=== PATIENT | female | born 2000 | race Caucasian/White ===

== ENCOUNTER 2023-01-04 12:07 | Emergency (ER) | payer BC, OTHER ==
[2023-01-04] MEDS ORDERED: BENADRYL 50 MG/ML IV ONE (12:27)
[2023-01-04] MEDS ORDERED: Sodium Chloride 0.9% 1000 ML 1,000 ML IV STA (12:27)
[2023-01-04] MEDS ORDERED: Zofran 4 MG/2 ML VIAL IV ONE (12:28)
[2023-01-04] MEDS ORDERED: BENADRYL 50 MG/ML ONE (12:34)
[2023-01-04] MEDS ORDERED: Sodium Chloride 0.9% 1000 ML 1,000 ML ONE (12:34)
[2023-01-04] MEDS ORDERED: Zofran 4 MG/2 ML VIAL ONE (12:34)
[2023-01-04 13:06] VITALS: PULSE 50
[2023-01-04 13:21] LABS: Absolute Neutrophil Ct (ANC) 5.12 x10^3/uL (1.4-6.9); BASOPHIL % 0.4 % (0.0-0.4); Basophil (Absolute #) 0.03 x10^3/uL (0-0.4); Eosinophil % 0.4 % (0.00-5.0); Eosinophil (Absolute #) 0.03 x10^3/uL (0-0.5); Hematocrit 40.5 % (35-47); Hemoglobin 13.3 g/dL (12.0-16.0); IMMATURE GRAN # 0.02 x10^3u/L (0.00-0.03); IMMATURE GRAN % 0.3 % (0.00-0.4); Lymphocyte (Absolute #) 1.32 x10^3/uL (1.0-4.6); Lymphocytes % 19.6 % (24.0-44.0); Mean Cell Volume 82.2 fL (78-100); Mean Corpuscular Hgb Concent. 32.8 g/dL (32-36); Mean Platelet Volume 10.6 fL (7.5-11.0); Monocyte (Absolute #) 0.21 x10^3/uL (0.0-1.3); Monocytes % 3.1 % (0.0-12.0); Neutrophil % 76.2 % (36.0-66.0); Platelet Count 302 x10^3/uL (150-450); Red Blood Count 4.93 x10^6/uL (4.1-5.4); Red Cell Distribution Width 13.7 % (11.5-14.0); White Blood Count 6.7 x10^3/uL (4.0-10.5)
[2023-01-04 13:34] LABS: HCG SERUM TEST NEGATIVE (NEGATIVE)
[2023-01-04 13:38] LABS: ALKALINE PHOSPHATASE 117 U/L (38-126); ANION GAP 17.9 MEQ/L (5-15); BLOOD UREA NITROGEN 12 mg/dL (7-17); CHLORIDE 101 mmol/L (98-107); Calcium 9.7 mg/dL (8.4-10.2); Carbon Dioxide 25 mmol/L (22-30); Creatinine 1 0.68 mg/dL (0.52-1.04); EST GLOMERULAR FILTRATION RATE > 60.0 ML/MIN; Glucose 122 mg/dL (74-106); LIPASE 177 U/L (23-300); SGOT/AST 30 U/L (14-36); SGPT/ALT 24 U/L (0-35); SODIUM 140 mmol/L (137-145); Total Protein 8.3 g/dL (6.3-8.2)
--- NOTE | 2023-01-04 14:00 | ERPHSYRPT ---
- History of Present Illness Time Seen by Provider: 01/04/23 12:11 Source: patient Exam Limitations: no limitations Patient Subjective Stated Complaint: pt here for vomiting since this am,vomited more than 10 times,flushed feeling , no loose stools, denies pain Triage Nursing Assessment: pt arrived per wc moaning out, vomited x1 in er, resp easy, skin w/d/p. no edema noted, urine clear, Physician History: Here with vomiting. Started this morning. No falls or other trauma. Some abdominal pain for several months but no acute abdominal pain today. Patient states that she is not sure if she is . She had her period last week. No fever, chills here. 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[email or web address] - Vaccination Dates Date of 2cond Vaccination (if applicable): 2020 - Review of Systems Constitutional: No Fever, No Chills Eyes: No Symptoms Ears, Nose, & Throat: No Symptoms Respiratory: No Cough, No Dyspnea Cardiac: No Chest Pain, No Edema, No Syncope Abdominal/Gastrointestinal: Nausea, Vomiting, No Abdominal Pain, No Diarrhea Genitourinary Symptoms: No Dysuria Musculoskeletal: No Back Pain, No Neck Pain Skin: No Rash Neurological: No Dizziness, No Focal Weakness, No Sensory Changes Psychological: No Symptoms Endocrine: No Symptoms All Other Systems: Reviewed and Negative - Past Medical History Pertinent Past Medical History: Yes Musculoskeletal History: Arthritis Psycho-Social History: Depression - Past Surgical History Past Surgical History: No - Social History Smoking Status: Current every day smoker Exposure to second hand smoke: No Drug Use: marijuana Patient Lives Alone: No - Female History Hx Last Menstrual Period: week ago Hx Now: No - Nursing Vital Signs Nursing Vital Signs: Initial Vital Signs Pulse Rate 50 L 01/04/23 13:04 Respiratory Rate 18 01/04/23 13:04 Blood Pressure 101/63 01/04/23 13:04 O2 Sat by Pulse Oximetry 98 01/04/23 13:04 Pain Scale Pain Intensity 0 - Physical Exam General Appearance: no apparent distress, alert Eye Exam: PERRL/EOMI, eyes nml inspection Ears, Nose, Throat Exam: normal ENT inspection, TMs normal, pharynx normal, moist mucous membranes Neck Exam: normal inspection, non-tender, supple, full range of motion Respiratory Exam: normal breath sounds, lungs clear, No respiratory distress Cardiovascular Exam: regular rate/rhythm, normal heart sounds, normal peripheral pulses Gastrointestinal/Abdomen Exam: soft, normal bowel sounds, No tenderness, No mass Back Exam: normal inspection, normal range of motion, No CVA tenderness, No vertebral tenderness Extremity Exam: normal inspection, normal range of motion, pelvis stable Neurologic Exam: alert, oriented x 3, cooperative, No motor deficits Skin Exam: normal color, warm, dry, No rash Lymphatic Exam: No adenopathy SpO2: 98 - Course Nursing assessment & vital signs reviewed: Yes Ordered Tests: Active Orders 24 hr Category Date Time Status IV Insertion STAT Care 01/04/23 12:27 Active CHEST 1 VIEW (PORTABLE) Stat Exams 01/04/23 12:27 Completed CBC W DIFF Stat Lab 01/04/23 12:27 Completed CMP Stat Lab 01/04/23 12:30 Completed HCG QUALITATIVE, SERUM Stat Lab 01/04/23 Completed LIPASE Stat Lab 01/04/23 12:30 Completed UA W/RFX UR CULTURE Stat Lab 01/04/23 12:29 Completed Urine Triage Profile Stat Lab 01/04/23 12:29 Completed Medication Summary Discontinued Medications Generic Name Dose Route Start Last Admin Trade Name Guerline PRN Reason Stop Dose Admin Diphenhydramine HCl 25 mg 01/04/23 12:27 01/04/23 12:36 Diphenhydramine Hcl 50 Mg/Ml Vial IV 01/04/23 12:28 25 mg STAT ONE Administration Diphenhydramine HCl Confirm 01/04/23 12:34 Diphenhydramine Hcl 50 Mg/Ml Vial Administered 01/04/23 12:35 Dose 50 mg .ROUTE .STK-MED ONE Sodium Chloride 1,000 mls @ 999 mls/hr 01/04/23 12:27 01/04/23 13:37 Sodium Chloride 0.9% 1000 Ml IV 01/04/23 13:27 Infused .Q1H1M STA Infusion Sodium Chloride Confirm 01/04/23 12:34 Sodium Chloride 0.9% 1000 Ml Administered 01/04/23 12:35 Dose 1,000 mls @ ud .ROUTE .STK-MED ONE Ondansetron HCl 8 mg 01/04/23 12:28 01/04/23 12:35 Ondansetron Hcl 4 Mg/2 Ml Vial IV 01/04/23 12:29 8 mg STAT ONE Administration Ondansetron HCl Confirm 01/04/23 12:34 Ondansetron Hcl 4 Mg/2 Ml Vial Administered 01/04/23 12:35 Dose 8 mg .ROUTE .STK-MED ONE Lab/Rad Data: Laboratory Result Diagrams 01/04/23 12:27 01/04/23 12:30 Laboratory Results 01/04/23 01/04/23 01/04/23 Range/Units Unknown 13:06 12:30 WBC (4.0-10.5) x10^3/uL RBC (4.1-5.4) x10^6/uL Hgb (12.0-16.0) g/dL Hct (35-47) % MCV (78-100) fL MCH (26-32) pg MCHC (32-36) g/dL RDW (11.5-14.0) % Plt Count (150-450) x10^3/uL MPV (7.5-11.0) fL Gran % (36.0-66.0) % Immature Gran % (Auto) (0.00-0.4) % Nucleat RBC Rel Count (0.00-0.1) % Eos # (Auto) (0-0.5) x10^3/uL Immature Gran # (Auto) (0.00-0.03) x10^3u/L Absolute Lymphs (auto) (1.0-4.6) x10^3/uL Absolute Monos (auto) (0.0-1.3) x10^3/uL Absolute Nucleated RBC (0.00-0.01) x10^3u/L Lymphocytes % (24.0-44.0) % Monocytes % (0.0-12.0) % Eosinophils % (0.00-5.0) % Basophils % (0.0-0.4) % Absolute Granulocytes (1.4-6.9) x10^3/uL Basophils # (0-0.4) x10^3/uL Sodium 140 (137-145) mmol/L Potassium 4.0 (3.5-5.1) mmol/L Chloride 101 (98-107) mmol/L Carbon Dioxide 25 (22-30) mmol/L Anion Gap 17.9 H (5-15) MEQ/L BUN 12 (7-17) mg/dL Creatinine 0.68 (0.52-1.04) mg/dL Estimated GFR > 60.0 ML/MIN Glucose 122 H (74-106) mg/dL Calcium 9.7 (8.4-10.2) mg/dL Total Bilirubin 0.70 (0.2-1.3) mg/dL AST 30 (14-36) U/L ALT 24 (0-35) U/L Alkaline Phosphatase 117 (38-126) U/L Serum Total Protein 8.3 H (6.3-8.2) g/dL Albumin 5.0 (3.5-5.0) g/dL Lipase 177 (23-300) U/L Serum HCG, Qual NEGATIVE (NEGATIVE) Urine Color (Yellow) Urine Appearance (Clear) Urine pH (4.6-8.0) Ur Specific [place] (1.005-1.030) Urine Protein (Negative) Urine Glucose (UA) (Negative) mg/dL Urine Ketones (Negative) Urine Blood (Negative) Urine Nitrite (Negative) Urine Bilirubin (Negative) Urine Urobilinogen (0.2) mg/dL Ur Leukocyte Esterase (Negative) U Hyaline Cast (Auto) (0-2) /LPF Urine Microscopic RBC (0-5) /HPF Urine Microscopic WBC (0-5) /HPF Ur Epithelial Cells (None Seen) /HPF Urine Bacteria (None Seen) /HPF Urine Culture Reflexed (NO) Urine Opiates Level (NEGATIVE) Ur Methadone (NEGATIVE) Urine Barbiturates (NEGATIVE) Ur Phencyclidine (PCP) (NEGATIVE) Urine Amphetamine (NEGATIVE) U Benzodiazepine Level (NEGATIVE) Urine Cocaine (NEGATIVE) Urine Marijuana (THC) (NEGATIVE) Influenza Type A Ag NEGATIVE (NEGATIVE) Influenza Type B Ag NEGATIVE (NEGATIVE) RSV (PCR) NEGATIVE (NEGATIVE) SARS-CoV-2 (PCR) NEGATIVE (NEGATIVE) 01/04/23 01/04/23 01/04/23 Range/Units 12:29 12:29 12:27 WBC 6.7 (4.0-10.5) x10^3/uL RBC 4.93 (4.1-5.4) x10^6/uL Hgb 13.3 (12.0-16.0) g/dL Hct 40.5 (35-47) % MCV 82.2 (78-100) fL MCH 27.0 (26-32) pg MCHC 32.8 (32-36) g/dL RDW 13.7 (11.5-14.0) % Plt Count 302 (150-450) x10^3/uL MPV 10.6 (7.5-11.0) fL Gran % 76.2 H (36.0-66.0) % Immature Gran % (Auto) 0.3 (0.00-0.4) % Nucleat RBC Rel Count 0.0 (0.00-0.1) % Eos # (Auto) 0.03 (0-0.5) x10^3/uL Immature Gran # (Auto) 0.02 (0.00-0.03) x10^3u/L Absolute Lymphs (auto) 1.32 (1.0-4.6) x10^3/uL Absolute Monos (auto) 0.21 (0.0-1.3) x10^3/uL Absolute Nucleated RBC 0.00 (0.00-0.01) x10^3u/L Lymphocytes % 19.6 L (24.0-44.0) % Monocytes % 3.1 (0.0-12.0) % Eosinophils % 0.4 (0.00-5.0) % Basophils % 0.4 (0.0-0.4) % Absolute Granulocytes 5.12 (1.4-6.9) x10^3/uL Basophils # 0.03 (0-0.4) x10^3/uL Sodium (137-145) mmol/L Potassium (3.5-5.1) mmol/L Chloride (98-107) mmol/L Carbon Dioxide (22-30) mmol/L Anion Gap (5-15) MEQ/L BUN (7-17) mg/dL Creatinine (0.52-1.04) mg/dL Estimated GFR ML/MIN Glucose (74-106) mg/dL Calcium (8.4-10.2) mg/dL Total Bilirubin (0.2-1.3) mg/dL AST (14-36) U/L ALT (0-35) U/L Alkaline Phosphatase (38-126) U/L Serum Total Protein (6.3-8.2) g/dL Albumin (3.5-5.0) g/dL Lipase (23-300) U/L Serum HCG, Qual (NEGATIVE) Urine Color Yellow (Yellow) Urine Appearance Clear (Clear) Urine pH 7.5 (4.6-8.0) Ur Specific [place] 1.015 (1.005-1.030) Urine Protein Negative (Negative) Urine Glucose (UA) Negative (Negative) mg/dL Urine Ketones 40 A (Negative) Urine Blood Negative (Negative) Urine Nitrite Negative (Negative) Urine Bilirubin Negative (Negative) Urine Urobilinogen 1.0 A (0.2) mg/dL Ur Leukocyte Esterase Negative (Negative) U Hyaline Cast (Auto) NONE SEEN (0-2) /LPF Urine Microscopic RBC 0-2 (0-5) /HPF Urine Microscopic WBC 0-2 (0-5) /HPF Ur Epithelial Cells None Seen (None Seen) /HPF Urine Bacteria None Seen (None Seen) /HPF Urine Culture Reflexed NO (NO) Urine Opiates Level NEGATIVE (NEGATIVE) Ur Methadone NEGATIVE (NEGATIVE) Urine Barbiturates NEGATIVE (NEGATIVE) Ur Phencyclidine (PCP) NEGATIVE (NEGATIVE) Urine Amphetamine NEGATIVE (NEGATIVE) U Benzodiazepine Level NEGATIVE (NEGATIVE) Urine Cocaine NEGATIVE (NEGATIVE) Urine Marijuana (THC) POSITIVE (NEGATIVE) Influenza Type A Ag (NEGATIVE) Influenza Type B Ag (NEGATIVE) RSV (PCR) (NEGATIVE) SARS-CoV-2 (PCR) (NEGATIVE) - Progress Progress: improved Progress Note: 01/04/23 13:59 differential diagnosis includes kidney stone, compression fracture, infection, UTI, triple AAA - basic labs including: CBC, lipase, CMP, UA, test, flu, COVID, RSV - insert IV for fluids, pain meds, nausea control - consider imaging: CT ab/pelvis or ultrasound 01/04/23 14:59 Patient feeling much improved. No leukocytosis, normal electrolytes. Patient has no further vomiting episodes after IV medication here. I did discuss risks and benefits of a CT scan, ultrasound with the patient. Ultimately we did decide not to obtain imaging tonight. I feel this is reasonable given that patient is feeling improved, no obvious lab abnormalities here. She will follow-up with her PCP for reexam. Patient does smoke marijuana. There is a possibility of marijuana cyclic vomiting syndrome. I did discuss the importance of stopping drug use with the patient. Counseled pt/family regarding: lab results, diagnosis, need for follow-up, rad results - Departure Departure Disposition: Home Clinical Impression: Nausea & vomiting Condition: Good Critical Care Time: No Referrals: VÍCTOR COX NP [Primary Care Provider] - Follow up/PCP as directed Instructions: Nausea and Vomiting, Adult ED Prescriptions: Ondansetron ODT 4 MG [Zofran Odt 4 mg] 4 mg PO Q6H PRN PRN #10 tablet PRN Reason: Vomiting
--- NOTE | 2023-01-04 14:00 | XRAY ---
Indication: Shaken and nausea. Comparison: None Portable chest demonstrates normal heart, lungs, and bony thorax.
[2023-01-04 14:26] LABS: Appearance Clear (Clear); Bacteria None Seen /HPF (None Seen); Bilirubin Negative (Negative); Blood Negative (Negative); Epithelial Cells None Seen /HPF (None Seen); Glucose, Urine Negative (Negative); Hyaline Casts NONE SEEN /LPF (0-2); Ketones 40 (Negative); Leukocyte Esterase Negative (Negative); Nitrite Negative (Negative); Ph 7.5 (4.6-8.0); Protein,Urine Dip Negative (Negative); RBC 0-2 /HPF (0-5); Specific Gravity 1.015 (1.005-1.030); WBC 0-2 /HPF (0-5)
[2023-01-04 14:32] LABS: ADD URINE CULTURE? NO (NO)
[2023-01-04 14:42] LABS: INFLUENZA A NEGATIVE (NEGATIVE); INFLUENZA B NEGATIVE (NEGATIVE); RESPIRATORY SYNCTIAL VIRUS NEGATIVE (NEGATIVE); SARS-CoV-2 Xpert Express NEGATIVE (NEGATIVE)
[2023-01-04 14:45] LABS: Amphetamine,Urine NEGATIVE (NEGATIVE); Barbiturate,Urine NEGATIVE (NEGATIVE); Benzodiazepine,Urine NEGATIVE (NEGATIVE); Cocaine,Urine NEGATIVE (NEGATIVE); Methadone,Urine NEGATIVE (NEGATIVE); Opiate,Urine NEGATIVE (NEGATIVE); PCP,Urine NEGATIVE (NEGATIVE); THC,Urine POSITIVE (NEGATIVE)
[2023-01-04 14:50] VITALS: O2SAT 98
[2023-01-04 15:07] VITALS: BP 98/64
== END 2023-01-04 15:06 | disposition home or self-care (01) ==
LOC: ED 12:07
DX: R11.2 Nausea with vomiting, unspecified (principal); Z79.899 Other long term (current) drug therapy; Z72.0 Tobacco use
CPT/HCPCS: 0241U; 36000; 36415; 71045; 80053; 80307; 81001; 83690; 84703; 85025; 96374; 96375; 99284; 96360; J1200; J2405

== ENCOUNTER 2024-03-01 07:04 | Inpatient (IN) | payer BC, OTHER ==
[2024-03-01 21:02] LABS: Appearance Clear (Clear); Bacteria None Seen /HPF (None Seen); Bilirubin Negative (Negative); Blood Negative (Negative); Epithelial Cells None Seen /HPF (None Seen); Glucose, Urine Negative (Negative); Hyaline Casts NONE SEEN /LPF (0-2); Ketones Negative (Negative); Leukocyte Esterase Negative (Negative); Nitrite Negative (Negative); Ph 6.5 (4.6-8.0); Protein,Urine Dip Negative (Negative); RBC 0-2 /HPF (0-5); WBC 0-2 /HPF (0-5)
[2024-03-01 21:09] LABS: ADD URINE CULTURE? NO (NO)
[2024-03-01 21:11] LABS: Amphetamine,Urine NEGATIVE (NEGATIVE); Barbiturate,Urine NEGATIVE (NEGATIVE); Benzodiazepine,Urine NEGATIVE (NEGATIVE); Cocaine,Urine NEGATIVE (NEGATIVE); Methadone,Urine NEGATIVE (NEGATIVE); Opiate,Urine NEGATIVE (NEGATIVE); PCP,Urine NEGATIVE (NEGATIVE); THC,Urine NEGATIVE (NEGATIVE)
[2024-03-01] MEDS ORDERED: Zofran 4 MG/2 ML VIAL IV PRN (21:31)
[2024-03-01] MEDS ORDERED: TYLENOL EXTRA STRENGTH 500 MG PO PRN (21:31)
[2024-03-01] MEDS ORDERED: Lactated Ringers 1,000 ML IV SCH (22:00)
[2024-03-01 22:16] LABS: Absolute Neutrophil Ct (ANC) 3.96 x10^3/uL (1.56-6.13); BASOPHIL % 0.3 % (0.1-1.2); Basophil (Absolute #) 0.02 x10^3/uL (0.01-0.08); Eosinophil % 1.2 % (0.7-5.8); Eosinophil (Absolute #) 0.08 x10^3/uL (0.04-0.36); Hematocrit 35.7 % (34.1-44.9); Hemoglobin 12.1 g/dL (11.2-15.7); IMMATURE GRAN # 0.06 x10^3u/L (0.001-0.031); IMMATURE GRAN % 0.9 % (0.001-0.429); Lymphocyte (Absolute #) 1.88 x10^3/uL (1.18-3.74); Lymphocytes % 28.6 % (19.3-51.7); Mean Cell Volume 84.4 fL (79.4-94.8); Mean Corpuscular Hemoglobin 28.6 pg (25.6-32.2); Mean Corpuscular Hgb Concent. 33.9 g/dL (32.2-35.5); Mean Platelet Volume 10.1 fL (9.4-12.3); Monocyte (Absolute #) 0.58 x10^3/uL (0.24-0.86); Monocytes % 8.8 % (4.7-12.5); Neutrophil % 60.2 % (34.0-71.1); Platelet Count 224 x10^3/uL (182-369); Red Blood Count 4.23 x10^6/uL (3.93-5.22); White Blood Count 6.6 x10^3/uL (3.98-10.04)
[2024-03-01 23:50] LABS: ABO TYPING A; Antibody Screen NEGATIVE (NEGATIVE); RH TYPING POSITIVE
[2024-03-02] MEDS: STADOL 2 MG IV PRN (00:58)
[2024-03-02] MEDS ORDERED: BRETHINE 1 MG/ML SQ PRN (04:56)
[2024-03-02] MEDS: PITOCIN 30 UNITS/ LR 500 ML 30 UNITS/500 ML PLAST..BAG IV SCH (04:59)
[2024-03-02] MEDS ORDERED: PITOCIN 30 UNITS/ LR 500 ML 30 UNITS/500 ML PLAST..BAG IV SCH (05:00)
[2024-03-02] MEDS ORDERED: Ephedrine Sulfate 50 MG/ML IV PRN (06:45)
[2024-03-02] MEDS: FENTANYL 2 MCG-BUPIV 0.125%-NS 250 ML Epidur 250 ML EPIDURAL SCH (07:47)
[2024-03-02] MEDS: Lactated Ringers 1,000 ML IV ONE (07:52)
[2024-03-02] MEDS: XYLOCAINE 1% HCL 20 ML MDV IJ PRN (08:45)
[2024-03-02] MEDS ORDERED: TRANEXAMIC 1,000 MG/100ML-NACL 1,000 MG/100 ML PIGGYBACK IV ONE (08:51)
[2024-03-02] MEDS: Methergine IM ONE (08:52)
[2024-03-02] MEDS: TRANEXAMIC 1,000 MG/100ML-NACL 1,000 MG/100 ML PIGGYBACK IV ONE (08:56)
[2024-03-02 09:33] LABS: Absolute Neutrophil Ct (ANC) 7.15 x10^3/uL (1.56-6.13); BASOPHIL % 0.1 % (0.1-1.2); Basophil (Absolute #) 0.01 x10^3/uL (0.01-0.08); Eosinophil % 0.1 % (0.7-5.8); Eosinophil (Absolute #) 0.01 x10^3/uL (0.04-0.36); Hematocrit 33.9 % (34.1-44.9); Hemoglobin 11.2 g/dL (11.2-15.7); IMMATURE GRAN # 0.06 x10^3u/L (0.001-0.031); IMMATURE GRAN % 0.7 % (0.001-0.429); Lymphocyte (Absolute #) 1.15 x10^3/uL (1.18-3.74); Mean Cell Volume 85.8 fL (79.4-94.8); Mean Corpuscular Hemoglobin 28.4 pg (25.6-32.2); Mean Platelet Volume 9.4 fL (9.4-12.3); Monocyte (Absolute #) 0.44 x10^3/uL (0.24-0.86); Neutrophil % 81.1 % (34.0-71.1); Platelet Count 184 x10^3/uL (182-369); Red Blood Count 3.95 x10^6/uL (3.93-5.22); Red Cell Distribution Width 13.8 % (11.7-14.4); White Blood Count 8.8 x10^3/uL (3.98-10.04)
[2024-03-02] MEDS ORDERED: CORTISONE 1% CREAM TP PRN (10:44)
[2024-03-02] MEDS ORDERED: Dulcolax 10 MG SUPP PR PRN (10:44)
[2024-03-02] MEDS ORDERED: Mylicon 80MG PO PRN (10:44)
[2024-03-02] MEDS ORDERED: Anucort-HC SUPPOSITORY PR PRN (10:44)
[2024-03-02] MEDS: MOTRIN 400 MG PO PRN (11:53)
[2024-03-02 12:53] LABS: Absolute Neutrophil Ct (ANC) 8.79 x10^3/uL (1.56-6.13); BASOPHIL % 0.1 % (0.1-1.2); Basophil (Absolute #) 0.01 x10^3/uL (0.01-0.08); Eosinophil % 0.1 % (0.7-5.8); Eosinophil (Absolute #) 0.01 x10^3/uL (0.04-0.36); Hematocrit 30.1 % (34.1-44.9); IMMATURE GRAN # 0.05 x10^3u/L (0.001-0.031); IMMATURE GRAN % 0.5 % (0.001-0.429); Lymphocytes % 12.1 % (19.3-51.7); Mean Corpuscular Hemoglobin 28.6 pg (25.6-32.2); Mean Corpuscular Hgb Concent. 33.2 g/dL (32.2-35.5); Mean Platelet Volume 9.6 fL (9.4-12.3); Monocyte (Absolute #) 0.62 x10^3/uL (0.24-0.86); Monocytes % 5.8 % (4.7-12.5); Neutrophil % 81.4 % (34.0-71.1); Platelet Count 157 x10^3/uL (182-369); Red Cell Distribution Width 13.7 % (11.7-14.4); White Blood Count 10.8 x10^3/uL (3.98-10.04)
[2024-03-02] MEDS: LANSINOH 40 GM TOP PRN (13:50)
[2024-03-02] MEDS: Dermoplast Spray TP PRN (13:51)
[2024-03-02] MEDS: TUCKS TP PRN (13:51)
[2024-03-02] MEDS: Docusate Sodium 100 MG PO SCH (21:52)
[2024-03-02] MEDS: TYLENOL EXTRA STRENGTH 500 MG PO PRN (22:44)
[2024-03-03 04:42] LABS: Absolute Neutrophil Ct (ANC) 5.21 x10^3/uL (1.56-6.13); BASOPHIL % 0.3 % (0.1-1.2); Basophil (Absolute #) 0.03 x10^3/uL (0.01-0.08); Eosinophil % 1.1 % (0.7-5.8); Hematocrit 27.9 % (34.1-44.9); Hemoglobin 9.3 g/dL (11.2-15.7); IMMATURE GRAN # 0.05 x10^3u/L (0.001-0.031); IMMATURE GRAN % 0.6 % (0.001-0.429); Lymphocyte (Absolute #) 2.85 x10^3/uL (1.18-3.74); Lymphocytes % 32.6 % (19.3-51.7); Mean Cell Volume 86.4 fL (79.4-94.8); Mean Corpuscular Hemoglobin 28.8 pg (25.6-32.2); Mean Corpuscular Hgb Concent. 33.3 g/dL (32.2-35.5); Mean Platelet Volume 9.4 fL (9.4-12.3); Monocyte (Absolute #) 0.49 x10^3/uL (0.24-0.86); Monocytes % 5.6 % (4.7-12.5); Neutrophil % 59.8 % (34.0-71.1); Platelet Count 180 x10^3/uL (182-369); Red Blood Count 3.23 x10^6/uL (3.93-5.22); Red Cell Distribution Width 14.1 % (11.7-14.4); White Blood Count 8.7 x10^3/uL (3.98-10.04)
[2024-03-03] MEDS: FERREX 150 PO SCH (09:32)
[2024-03-03 10:53] LABS: RPR Non Reactive (Non Reactive)
[2024-03-04 04:37] LABS: Absolute Neutrophil Ct (ANC) 3.69 x10^3/uL (1.56-6.13); BASOPHIL % 0.3 % (0.1-1.2); Basophil (Absolute #) 0.02 x10^3/uL (0.01-0.08); Eosinophil % 2.8 % (0.7-5.8); Hematocrit 25.1 % (34.1-44.9); Hemoglobin 8.1 g/dL (11.2-15.7); IMMATURE GRAN # 0.08 x10^3u/L (0.001-0.031); IMMATURE GRAN % 1.1 % (0.001-0.429); Lymphocyte (Absolute #) 2.54 x10^3/uL (1.18-3.74); Lymphocytes % 35.7 % (19.3-51.7); Mean Corpuscular Hemoglobin 28.7 pg (25.6-32.2); Mean Corpuscular Hgb Concent. 32.3 g/dL (32.2-35.5); Mean Platelet Volume 9.9 fL (9.4-12.3); Monocyte (Absolute #) 0.59 x10^3/uL (0.24-0.86); Monocytes % 8.3 % (4.7-12.5); Neutrophil % 51.8 % (34.0-71.1); Platelet Count 172 x10^3/uL (182-369); Red Blood Count 2.82 x10^6/uL (3.93-5.22); Red Cell Distribution Width 14.4 % (11.7-14.4); White Blood Count 7.1 x10^3/uL (3.98-10.04)
--- NOTE | 2024-03-04 09:26 | PCM.DS ---
Discharge Summary Date of Admission: 03/02/24 07:04 Admitting Physician: MEKA FRITZ Consults: Consults on Case 03/02/24 06:45 Notify Anesthesia Provider PRN 03/02/24 10:21 Navigation ONCE Primary Care Provider: VÍCTOR COX Allergies Allergies strawberry Allergy (Severe, Verified 03/02/24 03:43) Anaphylactic Reaction Hospital Summary - Hospital Course Hospital Course: patient had with spontaneous labor at 40wks, hemorrhage requiring methergine x 1 and TXA. doing well now, hemoglogin stable and mild lochia, no symptoms and doing well , - Vitals & Intake/Output Vital Signs: Vital Signs Temperature 98.3 F 03/04/24 04:00 Pulse Rate 96 H 03/04/24 04:00 Respiratory Rate 17 03/04/24 04:00 Blood Pressure 105/58 03/04/24 04:00 O2 Sat by Pulse Oximetry 100 03/04/24 04:00 Intake & Output: Intake & Output 03/01/24 03/02/24 03/03/24 03/04/24 11:59 11:59 11:59 11:59 Intake Total 1000 790 720 Output Total 1250 Balance -250 790 720 Weight 129.418 kg - Lab Result Diagrams: 03/04/24 04:08 Lab Results-Last 24 Hrs: Lab Results-Last 24 Hours 03/01/24 03/04/24 Range/Units 22:06 04:08 WBC 7.1 (3.98-10.04) x10^3/uL RBC 2.82 L (3.93-5.22) x10^6/uL Hgb 8.1 L (11.2-15.7) g/dL Hct 25.1 L (34.1-44.9) % MCV 89.0 (79.4-94.8) fL MCH 28.7 (25.6-32.2) pg MCHC 32.3 (32.2-35.5) g/dL RDW 14.4 (11.7-14.4) % Plt Count 172 L (182-369) x10^3/uL MPV 9.9 (9.4-12.3) fL Gran % 51.8 (34.0-71.1) % Immature Gran % (Auto) 1.1 H (0.001-0.429) % Nucleat RBC Rel Count 0.0 (0.00-0.2) % Eos # (Auto) 0.20 (0.04-0.36) x10^3/uL Immature Gran # (Auto) 0.08 H (0.001-0.031) x10^3u/L Absolute Lymphs (auto) 2.54 (1.18-3.74) x10^3/uL Absolute Monos (auto) 0.59 (0.24-0.86) x10^3/uL Absolute Nucleated RBC 0.00 (0.00-0.012) x10^3u/L Lymphocytes % 35.7 (19.3-51.7) % Monocytes % 8.3 (4.7-12.5) % Eosinophils % 2.8 (0.7-5.8) % Basophils % 0.3 (0.1-1.2) % Absolute Granulocytes 3.69 (1.56-6.13) x10^3/uL Basophils # 0.02 (0.01-0.08) x10^3/uL RPR Non Reactive (Non Reactive) Discharge Exam General Appearance: obese Neurologic Exam: alert, oriented x 3 Respiratory Exam: normal breath sounds, lungs clear, No respiratory distress Cardiovascular Exam: regular rate/rhythm, normal heart sounds Gastrointestinal/Abdomen Exam: soft, other (fundus firm) Extremity Exam: normal inspection, normal range of motion Skin Exam: normal color, warm, dry Final Diagnosis/Problem List - Final Discharge Diagnosis/Problem (1) Vaginal delivery Current Visit: Yes Status: Acute Code(s): O80 - ENCOUNTER FOR FULL-TERM UNCOMPLICATED DELIVERY (2) Second degree perineal laceration during delivery Current Visit: Yes Status: Acute Code(s): O70.1 - SECOND DEGREE PERINEAL LA CERATION DURING DELIVERY (3) hemorrhage Current Visit: Yes Status: Acute Code(s): O72.1 - OTHER IMMEDIATE HEMORRHAGE - Discharge Disposition: Home, Self-Care Condition: Stable Prescriptions: New Docusate Sodium 100 mg [Docusate Sodium 100 MG] 100 mg PO BID #60 cap Iron Polysaccharides Complex [Ferrex 150] 150 mg PO DAILY #30 cap Continue PARoxetine HCL [Paroxetine HCl] 10 mg PO DAILY Ondansetron ODT 4 MG [Zofran Odt 4 mg] 4 mg PO Q6H PRN PRN #10 tablet PRN Reason: Vomiting Pnv 119/Iron Fum/Folic Acid [ 19 Tablet] 1 each PO DAILY Follow up with: MEKA FRITZ MD [ACTIVE STAFF] - 6 weeks
[2024-03-04 20:05] VITALS: BP 129/71; PULSE 100; RESP 20; TEMP 98.1; O2SAT 99
== END 2024-03-04 20:20 | disposition home or self-care (01) | DRG 806 ==
LOC: OB 07:04 → OBSVTOIN 03-02 07:04
PROVIDERS: ADMIT Family Medicine; ATTEND Family Medicine
PROC: 10E0XZZ Delivery of Products of Conception, External Approach (ICD-10-PCS; principal; 2024-03-02)
PROC: 0KQM0ZZ Repair Perineum Muscle, Open Approach (ICD-10-PCS; 2024-03-02)
DX: O70.1 Second degree perineal laceration during delivery (principal); O72.1 Other immediate postpartum hemorrhage; Z37.0 Single live birth; Z3A.40 40 weeks gestation of pregnancy
CPT/HCPCS: 36415; 80307; 81001; 85025; 86592; 86850; 86900; 86901; 96372; G0378; G0379; J0595; J1330; J2590; A9270-GY

== ENCOUNTER 2024-03-09 15:45 | Emergency (ER) | payer BC, OTHER ==
[2024-03-09 16:43] VITALS: TEMP 98.2
--- NOTE | 2024-03-09 17:31 | ERPHSYRPT ---
- History of Present Illness Source: patient Exam Limitations: no limitations Patient Subjective Stated Complaint: BLE swelling since giving Triage Nursing Assessment: 23 yr old female pt arrives to ED via POV with . Pt ambulatory to room 3. Pt had vaginal 03/02/24 and has been experiencing edema in her BLE since giving . Pt states that she has notified Dr. Nguyen and OB and both told her that swelling could be normal up to 1 week . Pt states she grew concerned today when she started noticing a red rash like appearance around her ankles. Pt does have +1 pitting edema to BLE. Pt denies taking any medications for swelling. Pt denies blood pressure issues. Pt denies any other symptoms at this time except shortness of breath wh en going up and down stairs. Pt is alert, oriented and not in distress. and at bedside. Timing/Duration: today Severity: mild Associated Symptoms: denies symptoms Hx Tetanus, Diphtheria Vaccination/Date Given: Yes Hx Influenza Vaccination/Date Given: No Hx Pneumococcal Vaccination/Date Given: No <TRI MONROE - Last Filed: 03/09/24 19:09> <THEA ARMSTRONG - Last Filed: 03/09/24 23:08> - History of Present Illness Time Seen by Provider: 03/09/24 17:20 Allergies/Adverse Reactions: strawberry Allergy (Severe, Verified 03/09/24 16:38) Anaphylactic Reaction Home Medications: Pnv 119/Iron Fum/Folic Acid [ 19 Tablet] 1 each PO DAILY 03/02/24 [History] Sertraline HCl 50 mg [Zoloft 50 mg Tablet] 50 mg PO DAILY 03/09/24 [History] Travel Risk - International Travel Have you traveled outside of the country in past 3 weeks: No - Emerging Infectious Disease Are you exhibiting symptoms associated with any current EIDs: No <TRI MONROE - Last Filed: 03/09/24 19:09> - Review of Systems Constitutional: No Symptoms Eyes: No Symptoms Ears, Nose, & Throat: No Symptoms Respiratory: No Symptoms Cardiac: No Symptoms Abdominal/Gastrointestinal: No Symptoms Genitourinary Symptoms: No Symptoms Musculoskeletal: No Symptoms Skin: No Symptoms Neurological: No Symptoms Psychological: No Symptoms Endocrine: No Symptoms Hematologic/Lymphatic: No Symptoms Immunological/Allergic: No Symptoms <TRI MONROE - Last Filed: 03/09/24 19:09> - Past Medical History Pertinent Past Medical History: Yes Neurological History: No Pertinent History ENT History: No Pertinent History Cardiac History: No Pertinent History Respiratory History: No Pertinent History Endocrine Medical History: No Pertinent History Musculoskeletal History: No Pertinent History GI Medical History: Other History: No Pertinent History Psycho-Social History: Anxiety, Attention Deficit Disorder, Depression Female Reproductive Disorders: No Pertinent History Other Medical History: Was told in [place] had gastrointestinal disorder. Had persistent diarrhea and fevers. - Past Surgical History Past Surgical History: No Neuro Surgical History: No Pertinent History Cardiac: No Pertinent History Respiratory: No Pertinent History Gastrointestinal: No Pertinent History Genitourinary: No Pertinent History Musculoskeletal: No Pertinent History Female Surgical History: No Pertinent History - Female History Hx Now: No - Social History Smoking Status: Never smoker Exposure to second hand smoke: No Drug Use: none Patient Lives Alone: No - Social Determinants of Health Will the patient participate in the screening: Declined to provide <TRI MONROE - Last Filed: 03/09/24 19:09> - Physical Exam General Appearance: no apparent distress Eye Exam: PERRL/EOMI Ears, Nose, Throat Exam: normal ENT inspection Neck Exam: normal inspection Respiratory Exam: normal breath sounds Cardiovascular Exam: regular rate/rhythm Gastrointestinal/Abdomen Exam: soft, normal bowel sounds Extremity Exam: other (3 + edema noted bilaterally with a rash over the left ankle) Neurologic Exam: alert, oriented x 3 SpO2: 99 <TRI MONROE - Last Filed: 03/09/24 19:09> - Nursing Vital Signs Nursing Vital Signs: Initial Vital Signs Temperature 98.2 F 03/09/24 15:46 Pulse Rate 98 H 03/09/24 15:46 Respiratory Rate 16 03/09/24 15:46 Blood Pressure 126/82 03/09/24 15:46 O2 Sat by Pulse Oximetry 99 03/09/24 15:46 Pain Scale Pain Intensity 2 Ordered Tests: Active Orders 24 hr Category Date Time Status CHEST WITH CONTRAST [CT] Stat Exams 03/09/24 17:28 Taken VENOUS BILATERAL EXTREMITY [US] Stat Exams 03/09/24 17:28 Taken CBC W DIFF Stat Lab 03/09/24 17:45 Completed CMP Stat Lab 03/09/24 17:45 Completed CULTURE,URINE Stat Lab 03/09/24 19:53 Received NT PRO BNPII Stat Lab 03/09/24 17:45 Completed UA W/RFX UR CULTURE Stat Lab 03/09/24 19:53 Completed Medication Summary Generic Name Dose Route Start Last Admin Trade Name Guerline PRN Reason Stop Dose Admin Sodium Chloride 1,000 mls @ 50 mls/hr 03/09/24 17:30 03/09/24 19:13 Sodium Chloride 0.9% 1000 Ml IV 04/08/24 17:29 50 mls/hr .Q20H MARY BETH Administration Discontinued Medications Generic Name Dose Route Start Last Admin Trade Name Guerline PRN Reason Stop Dose Admin Diphenhydramine HCl Confirm 03/09/24 18:24 Diphenhydramine Hcl 50 Mg/Ml Vial Administered 03/09/24 18:25 Dose 50 mg .ROUTE .STK-MED ONE Diphenhydramine HCl 50 mg 03/09/24 18:28 03/09/24 18:31 Diphenhydramine Hcl 50 Mg/Ml Vial IV 03/09/24 18:29 50 mg STAT ONE Administration Ceftriaxone Sodium 1 gm in 100 mls @ 200 mls/hr 03/09/24 20:55 03/09/24 22:48 Rocephin 1 Gm / 100 Ml Nacl IV 03/09/24 21:24 Infused STAT ONE Infusion Ceftriaxone Sodium Confirm 03/09/24 21:00 Rocephin 1 Gm / 100 Ml Nacl Administered 03/09/24 21:01 Dose 1 gm in 100 mls @ ud IV .STK-MED ONE Lab/Rad Data: Laboratory Result Diagrams 03/09/24 17:45 03/09/24 17:45 Laboratory Results 03/09/24 03/09/24 03/09/24 Range/Units 19:53 17:45 17:45 WBC (3.98-10.04) x10^3/uL RBC (3.93-5.22) x10^6/uL Hgb (11.2-15.7) g/dL Hct (34.1-44.9) % MCV (79.4-94.8) fL MCH (25.6-32.2) pg MCHC (32.2-35.5) g/dL RDW (11.7-14.4) % Plt Count (182-369) x10^3/uL MPV (9.4-12.3) fL Gran % (34.0-71.1) % Immature Gran % (Auto) (0.001-0.429) % Nucleat RBC Rel Count (0.00-0.2) % Eos # (Auto) (0.04-0.36) x10^3/uL Immature Gran # (Auto) (0.001-0.031) x10^3u/L Absolute Lymphs (auto) (1.18-3.74) x10^3/uL Absolute Monos (auto) (0.24-0.86) x10^3/uL Absolute Nucleated RBC (0.00-0.012) x10^3u/L Lymphocytes % (19.3-51.7) % Monocytes % (4.7-12.5) % Eosinophils % (0.7-5.8) % Basophils % (0.1-1.2) % Absolute Granulocytes (1.56-6.13) x10^3/uL Basophils # (0.01-0.08) x10^3/uL Sodium 136 (135-145) mmol/L Potassium 3.9 (3.5-5.1) mmol/L Chloride 109 H (98-107) mmol/L Carbon Dioxide 23 (22-30) mmol/L Anion Gap 8.1 (5-15) MEQ/L BUN 12 (7-17) mg/dL Creatinine 0.54 (0.52-1.04) mg/dL Estimated GFR 132.6 ML/MIN Glucose 97 (74-106) mg/dL Calcium 8.5 (8.4-10.2) mg/dL Total Bilirubin 0.40 (0.2-1.3) mg/dL AST 29 (14-36) U/L ALT 28 (0-35) U/L Alkaline Phosphatase 121 (38-126) U/L NT-Pro-B Natriuret Pep 56.8 (<300) pg/mL Serum Total Protein 6.2 L (6.3-8.2) g/dL Albumin 3.4 L (3.5-5.0) g/dL Urine Color Yellow (Yellow) Urine Appearance Clear (Clear) Urine pH 8.0 (4.6-8.0) Ur Specific [place] 1.020 (1.005-1.030) Urine Protein 30 (Negative) Urine Glucose (UA) Negative (Negative) mg/dL Urine Ketones Negative (Negative) Urine Blood Large A (Negative) Urine Nitrite Negative (Negative) Urine Bilirubin Negative (Negative) Urine Urobilinogen 1.0 A (0.2) mg/dL Ur Leukocyte Esterase Large A (Negative) U Hyaline Cast (Auto) NONE SEEN (0-2) /LPF Urine Microscopic RBC >100 A (0-5) /HPF Urine Microscopic WBC >100 A (0-5) /HPF Ur Epithelial Cells None Seen (None Seen) /HPF Urine Bacteria None Seen (None Seen) /HPF Urine Culture Reflexed YES (NO) 03/09/24 Range/Units 17:45 WBC 6.2 (3.98-10.04) x10^3/uL RBC 3.23 L (3.93-5.22) x10^6/uL Hgb 9.2 L (11.2-15.7) g/dL Hct 29.2 L (34.1-44.9) % MCV 90.4 (79.4-94.8) fL MCH 28.5 (25.6-32.2) pg MCHC 31.5 L (32.2-35.5) g/dL RDW 14.2 (11.7-14.4) % Plt Count 305 (182-369) x10^3/uL MPV 9.1 L (9.4-12.3) fL Gran % 60.3 (34.0-71.1) % Immature Gran % (Auto) 0.8 H (0.001-0.429) % Nucleat RBC Rel Count 0.0 (0.00-0.2) % Eos # (Auto) 0.24 (0.04-0.36) x10^3/uL Immature Gran # (Auto) 0.05 H (0.001-0.031) x10^3u/L Absolute Lymphs (auto) 1.70 (1.18-3.74) x10^3/uL Absolute Monos (auto) 0.45 (0.24-0.86) x10^3/uL Absolute Nucleated RBC 0.00 (0.00-0.012) x10^3u/L Lymphocytes % 27.4 (19.3-51.7) % Monocytes % 7.3 (4.7-12.5) % Eosinophils % 3.9 (0.7-5.8) % Basophils % 0.3 (0.1-1.2) % Absolute Granulocytes 3.74 (1.56-6.13) x10^3/uL Basophils # 0.02 (0.01-0.08) x10^3/uL Sodium (135-145) mmol/L Potassium (3.5-5.1) mmol/L Chloride (98-107) mmol/L Carbon Dioxide (22-30) mmol/L Anion Gap (5-15) MEQ/L BUN (7-17) mg/dL Creatinine (0.52-1.04) mg/dL Estimated GFR ML/MIN Glucose (74-106) mg/dL Calcium (8.4-10.2) mg/dL Total Bilirubin (0.2-1.3) mg/dL AST (14-36) U/L ALT (0-35) U/L Alkaline Phosphatase (38-126) U/L NT-Pro-B Natriuret Pep (<300) pg/mL Serum Total Protein (6.3-8.2) g/dL Albumin (3.5-5.0) g/dL Urine Color (Yellow) Urine Appearance (Clear) Urine pH (4.6-8.0) Ur Specific [place] (1.005-1.030) Urine Protein (Negative) Urine Glucose (UA) (Negative) mg/dL Urine Ketones (Negative) Urine Blood (Negative) Urine Nitrite (Negative) Urine Bilirubin (Negative) Urine Urobilinogen (0.2) mg/dL Ur Leukocyte Esterase (Negative) U Hyaline Cast (Auto) (0-2) /LPF Urine Microscopic RBC (0-5) /HPF Urine Microscopic WBC (0-5) /HPF Ur Epithelial Cells (None Seen) /HPF Urine Bacteria (None Seen) /HPF Urine Culture Reflexed (NO) <TRI MONROE - Last Filed: 03/09/24 19:09> - Progress Progress: improved Counseled pt/family regarding: lab results, diagnosis, need for follow-up, rad results <THEA ARMSTRONG - Last Filed: 03/09/24 23:08> - Progress Progress Note: 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 Armstrong at 7 PM 03/09/24 19:09 (TRI MONROE) 03/09/24 22:57 CTA chest negative for PE sob improved significantly given dose of rocephin IV for UTI follow up w/ PCP/OBGYN Dr Nguyen this week to discuss lower extremity swelling complete course of cefdinir for UTI recommend elevating feet as frequently as possible above heart recommend compression socks return to ED if: shortness of breath returns, develop chest pain, pain in legs becomes unbearable (THEA ARMSTRONG) Medical Desision Making - Discussion of managment Agreed on:: need for follow-up <TRI MONROE - Last Filed: 03/09/24 19:09> - Discussion of managment Agreed on:: need for follow-up - Diagnostic Testing Diagnostic test were ordered, analyzed, and reviewed by me: Yes Radiological Interpretation: Reviewed by me, Teleradiologist Report - Risk of complications Low Risk: Low risk of morbidity from additional dx testing or treatment <THEA ARMSTRONG - Last Filed: 03/09/24 23:08> - Departure Critical Care Time: No <TRI MONROE - Last Filed: 03/09/24 19:09> - Departure Departure Disposition: Home Critical Care Time: No <THEA ARMSTRONG - Last Filed: 03/09/24 23:08> - Departure Clinical Impression: Anemia, Lower extremity edema, Shortness of breath Condition: Stable Referrals: VÍCTOR COX NP [Primary Care Provider] - Follow up/PCP as directed Additional Instructions: follow up w/ PCP/OBGYN Dr Nguyen this week to discuss lower extremity swelling complete course of cefdinir for UTI recommend elevating feet as frequently as possible above heart recommend compression socks return to ED if: shortness of breath returns, develop chest pain, pain in legs becomes unbearable
[2024-03-09 17:59] LABS: Absolute Neutrophil Ct (ANC) 3.74 x10^3/uL (1.56-6.13); BASOPHIL % 0.3 % (0.1-1.2); Basophil (Absolute #) 0.02 x10^3/uL (0.01-0.08); Eosinophil % 3.9 % (0.7-5.8); Eosinophil (Absolute #) 0.24 x10^3/uL (0.04-0.36); Hematocrit 29.2 % (34.1-44.9); Hemoglobin 9.2 g/dL (11.2-15.7); IMMATURE GRAN # 0.05 x10^3u/L (0.001-0.031); IMMATURE GRAN % 0.8 % (0.001-0.429); Lymphocytes % 27.4 % (19.3-51.7); Mean Cell Volume 90.4 fL (79.4-94.8); Mean Corpuscular Hemoglobin 28.5 pg (25.6-32.2); Mean Corpuscular Hgb Concent. 31.5 g/dL (32.2-35.5); Mean Platelet Volume 9.1 fL (9.4-12.3); Monocyte (Absolute #) 0.45 x10^3/uL (0.24-0.86); Monocytes % 7.3 % (4.7-12.5); Neutrophil % 60.3 % (34.0-71.1); Platelet Count 305 x10^3/uL (182-369); Red Blood Count 3.23 x10^6/uL (3.93-5.22); Red Cell Distribution Width 14.2 % (11.7-14.4); White Blood Count 6.2 x10^3/uL (3.98-10.04)
[2024-03-09 18:08] LABS: ALBUMIN 3.4 g/dL (3.5-5.0); ANION GAP 8.1 MEQ/L (5-15); BILIRUBIN,TOTAL 0.4 mg/dL (0.2-1.3); Calcium 8.5 mg/dL (8.4-10.2); Creatinine 1 0.54 mg/dL (0.52-1.04); EST GLOMERULAR FILTRATION RATE 132.6 ML/MIN; Potassium 3.9 mmol/L (3.5-5.1); Total Protein 6.2 g/dL (6.3-8.2)
[2024-03-09] MEDS ORDERED: BENADRYL 50 MG/ML ONE (18:24)
[2024-03-09] MEDS: BENADRYL 50 MG/ML IV ONE (18:31)
[2024-03-09] MEDS ORDERED: Sodium Chloride 0.9% 1000 ML 1,000 ML ONE (19:08)
[2024-03-09] MEDS: Sodium Chloride 0.9% 1000 ML 1,000 ML IV SCH (19:13)
[2024-03-09 20:27] LABS: Appearance Clear (Clear); Bacteria None Seen /HPF (None Seen); Bilirubin Negative (Negative); Blood Large (Negative); Epithelial Cells None Seen /HPF (None Seen); Glucose, Urine Negative (Negative); Hyaline Casts NONE SEEN /LPF (0-2); Ketones Negative (Negative); Leukocyte Esterase Large (Negative); Nitrite Negative (Negative); Protein,Urine Dip 30 (Negative); RBC >100 /HPF (0-5); WBC >100 /HPF (0-5)
[2024-03-09 20:28] LABS: ADD URINE CULTURE? YES (NO)
[2024-03-09] MEDS ORDERED: ROCEPHIN 1 GM / 100 ML NaCl 1 GM/100 ML IVPB IV ONE (21:00)
[2024-03-09] MEDS: ROCEPHIN 1 GM / 100 ML NaCl 1 GM/100 ML IVPB IV ONE (21:03)
[2024-03-09 23:15] VITALS: BP 107/73; PULSE 82; RESP 14; O2SAT 97
--- NOTE | 2024-03-10 08:36 | XRAY ---
Indication: Bilateral leg swelling. Status post recent . Multiple contiguous axial images obtained through the chest using 100 cc Isovue 370 contrast and PE protocol. Comparison: None Good opacification pulmonary arteries to include the lobar and segmental branches. No pulmonary embolus. Heart not enlarged. Aorta is normal in course and caliber. No pathologic mediastinal/hilar lymphadenopathy. Lungs inflated and clear. Bony thorax intact. Limited upper abdomen demonstrates 13.4 cm splenomegaly. Impression: Negative pulmonary embolus. Incidental splenomegaly. Remaining CT chest with contrast exam is negative.
--- NOTE | 2024-03-10 08:42 | XRAY ---
Indication: Leg swelling. Status post recent . Two-dimensional sonogram and color Doppler imaging major venous vessels left and right leg performed. Comparison: None No thrombus seen in the examined deep venous vessels left and right leg including greater saphenous vein. Veins demonstrate normal compressibility. Venous waveforms are normal with and without augmentation. Impression: Left and right legs negative for DVT. Comment: Preliminary report was given.
== END 2024-03-09 23:24 | disposition home or self-care (01) ==
LOC: ED 15:45
DX: D64.9 Anemia, unspecified (principal); R60.0 Localized edema; R06.02 Shortness of breath; Z79.899 Other long term (current) drug therapy
CPT/HCPCS: 36000; 36415; 71260; 80053; 81001; 83880; 85025; 87086; 93970; 96365; 96374; 99284; J0696; J1200